=== PATIENT | male | born 1985 | race American Indian/Alaskan Native ===

== ENCOUNTER 2023-03-09 12:19 | Emergency (ER) | payer MEDICAID ==
[2023-03-09] MEDS ORDERED: Lidocaine 1% 5 ML VIAL INJECT ONE (12:36)
[2023-03-09] MEDS ORDERED: Bacitracin/Neomycin/Polymyxin B Oint 0.9 GM U/D Packet TOP ONE (12:45)
== END 2023-03-09 13:02 | disposition home or self-care (01) ==
LOC: CC.ED 12:19
DX: L02.415 Cutaneous abscess of right lower limb (principal); L03.115 Cellulitis of right lower limb
CPT/HCPCS: 10060; 87070; 87077; 87186; 99283; A9270-GY; J3490

== ENCOUNTER 2024-03-21 14:17 | Emergency (ER) | payer MEDICAID ==
[2024-03-21 15:06] LABS: BASOPHILS ABSOLUTE AUTO 0.03 10^3/uL (0.00-0.50); BASOPHILS PERCENT AUTO 0.6 % (0-1); EOSINOPHILS ABSOLUTE AUTO 0.46 10^3/uL (0.00-1.50); EOSINOPHILS PERCENT AUTO 8.9 % (0-6); HEMATOCRIT 37.8 % (42.0-52.0); HEMOGLOBIN 12.5 g/dL (14.0-18.0); LYMPHOCYTES ABSOLUTE AUTO 1.35 10^3/uL (0.60-5.00); MEAN CORPUSCULAR HEMOGLOBIN 29.6 pg (27.0-32.0); MEAN CORPUSCULAR HGB CONC 33.1 g/dL (32.0-36.0); MEAN CORPUSCULAR VOLUME 89.6 fL (83.0-97.0); MONOCYTES PERCENT AUTO 15.4 % (0-10); NEUTROPHILS ABSOLUTE AUTO 2.55 x10^3/uL (1.80-8.00); NEUTROPHILS PERCENT AUTO 49.1 % (41-71); PLATELET COUNT,PLT 220 10^3/uL (150-400); RED BLOOD CELL COUNT 4.22 x10^6/uL (4.50-6.00); WHITE BLOOD CELL COUNT,WBC 5.2 10^3/uL (4.0-11.0)
[2024-03-21 15:19] LABS: ALBUMIN 3.7 g/dL (3.4-5.0); BILIRUBIN TOTAL 0.3 mg/dL (0.0-1.0); C-REACTIVE PROTEIN 2.27 mg/dL (<=0.50); CALCIUM 8.7 mg/dL (8.4-10.1); CREATININE 0.9 mg/dL (0.7-1.3); EST CRCL DRUG DOSING (CG) 118.96 mL/min; MAGNESIUM 1.7 mg/dL (1.8-2.4); PROTEIN TOTAL,TP 7.1 g/dL (6.4-8.2)
[2024-03-22 07:37] LABS: SEDIMENTATION RATE MANUAL 17 mm/hr (0-15)
== END 2024-03-21 16:03 | disposition home or self-care (01) ==
LOC: CC.ED 14:17
DX: B34.9 Viral infection, unspecified (principal); F17.210 Nicotine dependence, cigarettes, uncomplicated; Z79.899 Other long term (current) drug therapy
CPT/HCPCS: 36415; 80053; 82150; 83735; 85025; 85651; 85652; 86140; 99283; U0002